=== PATIENT | female | born 1990 | race Caucasian/White ===

== ENCOUNTER 2024-02-04 15:40 | Outpatient (AMB) | payer OTHER, SELFPAY ==
[2024-02-04 15:43] VITALS: BP 100/66; PULSE 90; O2SAT 98; BMI 24.4
--- NOTE | 2024-02-04 15:43 | A.OFFVIS_ITS ---
Vital Signs 02/04/24 15:43 Height 5 ft 3 in Weight 137 lb 12.623 oz BMI 24.4 BP 100/66 Blood Pressure Location Lt brachial Position Sitting Pulse 90 Pulse Source Pulse Oximeter Pulse Oximetry (%) 98 Oxygen Delivery Method Room Air Intake Visit Reasons: Abnormal lab result/cm Intake Note: Patient presents as a new patient, externally referred by PCP for abnormal labs including +FADY. Allergies No Known Allergies Allergy (Verified 02/04/24 15:45) Medication List - Last Reconciled 02/04/24 by Charlette Ford MD No Known Home Meds HPI Comments Details: Patient is a 33-year-old female with no chronic medical illnesses who presents for evaluation of positive FADY. She has been having low back pain and fatigue for the past 1 year and she asked her PCP to evaluate. Several investigations were sent including FADY which was positive 1:5210 centromere pattern. ESR and CRP are normal. She denies Raynaud's, skin tightening, inflammatory type joint pain, alopecia, GERD, calcinosis, esophageal dysmotility. Denies rashes, photosensitivity, alopecia, sicca symptoms, lymphadenopathy, chest pain/shortness of breath, inflammatory type joint pain, foamy urine, lower extremity edema, muscle weakness, Raynaud's Also denies history of seizure, CVA, psychosis, history of kidney problems, history of cytopenias, history of VTE. Does note she gets nasal ulcers sometimes but she has been attributing them to her herpetic infections because she also has cold sores. Family history positive for Graves disease and Yanira's thyroiditis in her sisters. [facility] Medical History (Updated 02/04/24 @ 16:06 by Charlette Ford MD) FADY positive Review of Systems Const Details: Review of Systems Constitutional: Denies fever, chills, weight loss ENT: Denies vision changes, eye pain or eye redness, dental caries, dry mouth GI: Denies nausea, vomiting, diarrhea, abdominal pain, change in BM Pulm: Denies SOB, HART, hemoptysis, wheezing Cards: Denies chest pain, palpitations Skin: Denies Raynaud's, rash, nail changes, photosensitivity, ASSET ACCOUNTANT: Denies headaches, weakness, paresthesias, recurrent falls MSK: as per HPI All other systems reviewed and are unremarkable except noted above Physical Exam Vital Signs: Last Vital Signs Pulse 90 02/04/24 15:43 BP 100/66 02/04/24 15:43 Pulse Ox 98 02/04/24 15:43 Oxygen Delivery Method Room Air 02/04/24 15:43 BMI result Body Mass Index 24.4 Physical Examination Patient well appearing and in no apparent painful distress Able to rise from chair without support. ?Gait normal. Constitutional Mucous membranes pink and moist patient alert and cooperative HEENT Conjunctiva and sclera clear. ?Pupils equal round and reactive to light. ?No lymphadenopathy. ?Normal dentition. Respiratory System Normal respiratory effort and able to speak in complete sentences. ?Clear to auscultation bilaterally. ?No crackles, rales, rhonchi, wheezes heard. Cardiac System Regular rate and rhythm. ?S1 and S2 heard no murmurs. ?Radial pulses intact bilaterally MSK No deformity, swelling, abnormalities noted to bilateral hands. ?No evidence of synovitis. ?Able to move all joints with full range of motion, without limitation. Hands:.??Normal pain-free range of motion without tenderness, swelling, incr eased warmth or erythema. Able to make a full fist and has a good bulldozer/loader/compactor/scraper strength. Wrists: Normal pain-free range of motion without tenderness, swelling, increased warmth or erythema. Elbows: Full range of motion without pain. No tenderness, weakness, swelling, increased warmth or erythema. Shoulders: Full range of motion without pain. No tenderness, weakness, swelling, increased warmth or erythema. Hips: Full range of motion without pain. Hip bursa:.??No tenderness. Knees:.???Normal pain-free range of motion without tenderness, swelling, increased warmth or erythema.?No effusion or crepitations Ankles:.??Normal pain-free range of motion without tenderness, swelling, increased warmth or erythema. Feet:.??Normal pain-free range of motion without tenderness, swelling, increased warmth or erythema. Tender points:??No tenderness to digital palpation at the occiput, trapezius, second rib, lateral epicondyle, knees, greater trochanter bilaterally, and left gluteal. Skin No evidence of telangiectasias. No evidence of skin tightening. No evidence of alopecia. Normal nailfold capillaries. Results Reviewed Results Reviewed: Results reviewed in chart. FADY 1:5210 centromere pattern Negative APS antibodies Normal ESR/CRP Assessment & Plan Assessment & Plan (1) FADY positive: Code(s): R76.8 - Other specified abnormal immunological findings in serum Category: Medical Plan: #Positive FADY The presence of antinuclear antibodies (FADY) is mainly associated with connective tissue diseases (CTD). ?However, their presence is found in healthy people especially in women and patients >65. ?In healthy individuals, the frequency of FADY has been shown to be 31.7% of individuals at 1:40 serum dilution, 13.3% at 1:80, 5.0% at 1:160, and 3.3% at 1:320 (2). Some drugs and xenobiotics are also important for the development of FADY (hydralazine, hydrochlorothiazide, minocycline, terbinafine, ciprofloxacin, furosemide, omeprazole). Moreover, the deficiency of vitamin D in the body of patients correlates with occurrence of these antibodies (1). At this time there is low suspicion for a connective tissue disease. ? Although this is likely a normal variant given her really high titer would recommend yearly follow-up 1. Sabrina?sarbjit Beavers, Serg Moreno, Salazar Meza. Antinuclear antibodies in healthy people and non-rheumatic diseases - diagnostic and clinical implications. Reumatologia. 2018;56(4):243-248. doi: 10.5114/reum.2018.28084. Epub 2017Dec 05. PMID: 84480507; PMCID: [id number]. 2. Franz EM, Miguel TE, Jennifer JS, Terri B, Margarita R, Elsie MJ, Roland T, Yves JA, Roby JR, Nuha RG, Tito RN, Cameron JS, Xavier NF, Khushi RJ, Miguel Y, Silke A, Evin MR, Donald WU. Range of antinuclear antibodies in healthy individuals. Arthritis Rheum. 1996;40(9):1601-11. doi: 10.1002/art.4173197026. PMID: 7943017. Plan I spent 30 minutes reviewing the record and labs, seeing the patient, discussing the treatment plan and documenting in the medical record ? For next visit: * Labs Orders: Orders FADY Reflex Titer and Pattern Today R76.8 - Other specified abnormal immunological findings in serum Anti Extractable Nuclear Ag Today R76.8 - Other specified abnormal immunological findings in serum Scleroderma 70 Antibody Today R76.8 - Other specified abnormal immunological findings in serum Protein Creatinine Ratio, Ur Today R76.8 - Other specified abnormal immunological findings in serum UA w Microscopic Today R76.8 - Other specified abnormal immunological findings in serum Coding Level of Care Code New Pt Level 3 (80411) Diagnoses FADY positive R76.8
== END 2024-02-04 16:13 | disposition home or self-care (01) ==
LOC: HO.RHE 15:41
PROVIDERS: PCP Family Medicine; Visit Provider Student in an Organized Health Care Education/Training Program
DX: R76.8 Other specified abnormal immunological findings in serum (principal)
CPT/HCPCS: 99203

== ENCOUNTER 2024-02-04 15:40 | Outpatient (REF) | payer OTHER, SELFPAY ==
[2024-02-04 17:24] LABS: Appearance Urine Cloudy; Color Urine Yellow; Glucose Urine UA Negative (Negative); Leukocyte Esterase Urine Trace (Negative); Nitrite Urine Negative (Negative); PH 6.5 (5.0-9.0); Specific Gravity - Urine 1.015 (1.005-1.025); UMIC TRIGGER UA YES; Urine Blood Small (1+) (Negative); Urine Ketones Negative (Negative); Urine Protein Negative (Neg-Trace)
[2024-02-04 18:06] LABS: Bacteria Urine Trace (None Seen); Hyaline Casts Urine 0-2 /LPF (0-2); Squamous Epithelial Cell Urine >20 /HPF (0-2); WBC Urine 0-5 /HPF (0-5)
[2024-02-04 18:20] LABS: Creatinine Urine 106.69 mg/dL; Protein/Creatinine Ratio, Ur 0.07 (<0.2); Total Protein Urine Random 8 mg/dL (<12)
[2024-02-06 18:28] LABS: SM/Ribonucleoprotein Ab <1.0 NEG AI (<1.0 NEG); Scleroderma 70 Antibody <1.0 NEG AI (<1.0 NEG); Smith Protein <1.0 NEG AI (<1.0 NEG)
[2024-02-12 12:23] LABS: Anti Nuclear Antibody Pattern Nuclear, Homogeneous; Anti Nuclear Antibody Screen POSITIVE (NEGATIVE)
== END 2024-02-04 15:41 | disposition home or self-care (01) ==
LOC: HO.LAB 15:40
PROVIDERS: PCP Family Medicine; Visit Provider Student in an Organized Health Care Education/Training Program
DX: R76.8 Other specified abnormal immunological findings in serum (principal)
CPT/HCPCS: 36415; 81001; 82570; 84156; 86038; 86039; 86235

== ENCOUNTER → 2024-02-18 10:51 | Outpatient (REF) | payer OTHER, SELFPAY ==
--- NOTE | 2024-02-18 10:54 | CA_ITS ---
Transthoracic Echocardiogram Patient (Last, First, Middle): Mariaelena Neely, Gender: Female Date of : 1990 Age: 33 Procedure Date: 02/18/2024 Procedure Type: Transthoracic Echocardiogram Location: OP Height: 160.02 cm Weight: 60.33 kg BSA: 1.63 m2 Heart Rate: bpm BP: 106 / 64 mmHg Truck Driver: STEPHANIE Referring MD: Charlette Ford MD Cupola Hoist Operator: Warner Rosenberg MD Symptoms: M34.9 - Systemic sclerosis, unspecified Study Quality: Adequate ECG Rhythm: Sinus Conclusions: - Normal study Findings Left Ventricle Normal left ventricular size, thickness, and systolic function. The visually estimated ejection fraction is between 60-65%. Diastolic function is normal for age. Right Ventricle Normal right ventricular cavity size and systolic function. Atria Both atria are normal in size. There is no evidence of interatrial shunt. Aortic Valve Normal aortic valve structure and function. There is no aortic valve stenosis. There is no aortic valve regurgitation. Mitral Valve Normal mitral valve structure and function. There is trace mitral valve regurgitation. There is no mitral valve stenosis. Tricuspid Valve Normal tricuspid valve structure. There is trace tricuspid valve regurgitation. The right ventricular systolic pressure is normal. The right ventricular systolic pressure is 27 mmHg. Normal right atrial pressure. There is no evidence of pulmonary hypertension. Great Vessels All visible segments of the aorta are normal in size. The visualized portions of the pulmonary artery and branches are normal. Venous The inferior vena cava is normal in size and collapses greater than 50% with inspiration. Pericardium/Pleural There is no evidence of pericardial effusion. Prior Study Comparison No prior study available for comparison. Measurements 2D Linear Measurements IVSd: 0.67 0.6-0.9/0.6-1.0 cm LVIDd: 4.70 3.9-5.3/4.2-5.9 cm LVIDd Index: 2.88 2.4-3.2/2.2-3.1 cm/m2 LVIDs: 3.33 2.0-3.6 cm LVPWd: 0.51 0.7-1.1 cm LA Diam: 2.80 2.7-3.8/3.0-4.0 cm LAIDs Index: 1.72 1.5-2.3 cm/m2 LV Mass: 103.78 67-162/88-224 g LV Mass Index: 63.67 43-95/49-115 g/m2 LVOT Diam: 1.80 3.0+(-)1.3 cm 2D Systolic Function EF 4C: 62.60 >55% EF 2C: 60.30 >55% EF BiP: 59.90 >55% Mitral Valve MV Pk E: 0.78 MV PK A: 0.42 MV Decel Time: 283.00 E/A: 1.90 E'Lateral: 15.70 E'Medial: 11.50 E/E' Med: 6.80 E/E' Lat: 5.00 PHT: 83.00 MVA PHT: 2.65 Decel [place]: 2.77 Aortic Valve AoV Pk Myke: 1.35 AoV Mn Myke: 0.98 AoV VTI: 0.40 AoV Pk Grad: 7.00 Aov Mn Grad: 4.00 MAXIMUS Cont.VTI: 1.49 LVOT LVOT Pk Myke: 1.05 LVOT Mn Myke: 0.75 LVOT VTI: 0.24 LVOT Pk Grad: 4.00 LVOT Mn Grad: 3.00 LVOT Diam: 1.80 LVOT Area: 2.54 Diastolic Function MV Pk E: 0.78 MV Pk A: 0.42 E/A: 1.90 E'Medial: 11.50 E/E' Med: 6.80 E' Laterial: 15.70 E/E' Lat: 5.00 Right Ventricle TAPSE (mm): 25.00 TVS' Myke: 13.80 Tricuspid Valve TR Pk Myke: 2.47 TR Pk Grad: 24.00 RA Press: 3.00 RVSP: 27.00 Great Vessels Aorta Sinus of Valsalva: 2.62 2.0-3.[address] [place]: 2.29 1.7-3.4 cm Ao Asc: 2.60 2.1-3.4 cm Ao Arch: 2.20 Updated in Other Vendor System with Status of Final Warner Rosenberg MD electronically signed on 02/18/2024 4:21:37 PM with status of Final
== END ==
LOC: HO.CARD 10:51
PROVIDERS: PCP Family Medicine; Visit Provider Student in an Organized Health Care Education/Training Program
DX: M34.9 Systemic sclerosis, unspecified (principal)
CPT/HCPCS: 93306

== ENCOUNTER → 2024-02-18 10:54 | Outpatient (BNV) | payer OTHER, SELFPAY | PROVIDERS: PCP Family Medicine; Visit Provider Internal Medicine Cardiovascular Disease | DX: M34.9 Systemic sclerosis, unspecified (principal) | CPT/HCPCS: 93306 ==

== ENCOUNTER 2024-02-27 15:49 | Outpatient (REF) | payer OTHER, SELFPAY ==
--- NOTE | ~2024-02-27 | CT_ITS ---
EXAMINATION: CT CHEST WITHOUT CONTRAST CLINICAL INFORMATION: Systemic sclerosis. COMPARISON: None available. TECHNIQUE: Multidetector volumetric CT imaging of the chest was done. Axial MIP volume rendering provided. Sagittal and coronal reformatted images were obtained. This CT examination was performed using dose optimization techniques as appropriate, variously including the following: *Automated exposure control *Adjustment of mA and/or kV according to patient size (this includes techniques or standardized protocols for targeted exams where dose is matched to indication/reason for exam; i.e. extremities or head) *Use of iterative reconstruction technique DLP: 133 mGy-cm FINDINGS: LUNGS: The lungs are clear with no evidence of inflammation or nodules. MEDIASTINUM: Imaged thyroid gland is unremarkable. No axillary, hilar or mediastinal lymphadenopathy. Great vessels are of normal caliber. Heart size is normal. No pericardial effusion. CORONARY ARTERY CALCIFICATION: None visualized on this study. PLEURA: No pleural effusion. UPPER ABDOMEN: Unremarkable. OSSEOUS STRUCTURES: No destructive bone lesions. CT/CT chest wo IV con IMPRESSION: Unremarkable examination. Fleischner guidelines were followed. Electronically signed by: Pro Meyer MD 03/01/2024 11:32 AM [facility] [place]
== END 2024-02-27 15:50 | disposition home or self-care (01) ==
LOC: HO.CT 15:49
PROVIDERS: PCP Family Medicine; Visit Provider Student in an Organized Health Care Education/Training Program
DX: M34.9 Systemic sclerosis, unspecified (principal)
CPT/HCPCS: 71250

== ENCOUNTER 2025-02-02 08:04 | Outpatient (REF) | payer OTHER, SELFPAY ==
--- OUTSIDE RECORDS SUMMARY | 2025-02-02 09:16 | XMS_ITS | Clinical Summary ---
Author Organization [facility] Address [address] [place] [address] Care Team Providers Care Other Sports Official Name Role Phone Abigail Benitez MD Primary Care Provider [phone] Immunizations Name Administration Dates Next Due Influenza Quadrivalent Prese rvative Free (IM) 01/25/2020 Influenza Unspecified 02/07/2021(Deferre d: Vaccinated Elsewhere - [facility]),01/14/2019(Deferred: Vaccinated Elsewhere - [facility]) PFIZER COVID-19 Vaccine (Pur ple), mRNA, LNP-S, PF, 30 mcg/0.3 mL dose 04/20/2020,03/29/2020 Social History Tobacco Use Types Packs/Day Years Used Date Smoking Tobacco: Never Assessed Comments Unknown Sex and Gender Information Value Date Recorded Sex Assigned at Not on file Legal Sex Female 9:37 AM EDT Gender Identity Not on file Sexual Orientation Not on file Plan of Treatment Not on file Insurance [facility] Care Teams Other Sports Official Relationship Specialty Start Date End Date Abigail Benitez MD [address] [place] [id number] PCP - General Internal Medicine 01/08/20
[2025-02-02 13:16] LABS: Appearance Urine Clear; Glucose Urine UA Negative (Negative); PH 7.0 (5.0-9.0); Specific Gravity - Urine 1.020 (1.005-1.025)
[2025-02-02 14:11] LABS: Total Protein Urine Random < 7 mg/dL (<12)
== END 2025-02-02 08:05 | disposition home or self-care (01) ==
LOC: HO.HKASLDS 08:04
PROVIDERS: PCP Family Medicine; Visit Provider Student in an Organized Health Care Education/Training Program
DX: M32.9 Systemic lupus erythematosus, unspecified (principal); R76.89 Other specified abnormal immunological findings in serum
CPT/HCPCS: 36415; 81001; 82570; 84156; 85652; 86140; 86160; 86225

== ENCOUNTER 2025-02-02 08:04 | Outpatient (AMB) | payer OTHER, SELFPAY ==
--- NOTE | 2025-02-02 08:08 | MHC.OFFVIS ---
Vital Signs 02/02/25 08:15 Height 5 ft 3 in Weight 137 lb 5.568 oz BMI 24.3 BP 102/70 Blood Pressure Location Lt brachial Position Sitting Pulse 87 Pulse Source Pulse Oximeter Pulse Oximetry (%) 100 Oxygen Delivery Method Room Air Intake Visit Reasons: Elevated FADY Intake Note: Patient presents for elevated FADY follow up. Allergies No Known Allergies Allergy (Verified 02/02/25 08:12) Medication List - Last Reconciled 02/02/25 by Charlette Ford MD No Known Home Meds HPI Comments Details: Patient is a 34-year-old female with no chronic medical illnesses here today for follow up Interval History: Patient last seen 02/04/24 - New patient eval for positive FADY - No evidence of CTD at that time - Plan for yearly follow up given high titre Today - Not on any DMARDs - Doing well this past year - Denies photosensitivity, alopecia, oral/nasal ulcers, sicca symptoms, lymphadenopathy, chest pain/shortness of breath, inflammatory type joint pain, foamy urine, lower extremity edema, muscle weakness, Raynaud's - Also denies history of seizure, CVA, psychosis, history of kidney problems, history of cytopenias, history of VTE including PE or DVTs Rheumatologic History: Initial History: She has been having low back pain and fatigue for the past 1 year and she asked her PCP to evaluate. Several investigations were sent including FADY which was positive 1:5210 centromere pattern. ESR and CRP are normal. She denies Raynaud's, skin tightening, inflammatory type joint pain, alopecia, GERD, calcinosis, esophageal dysmotility. Denies rashes, photosensitivity, alopecia, sicca symptoms, lymphadenopathy, chest pain/shortness of breath, inflammatory type joint pain, foamy urine, lower extremity edema, muscle weakness, Raynaud's Also denies history of seizure, CVA, psychosis, history of kidney problems, history of cytopenias, history of VTE. Does note she gets nasal ulcers sometimes but she has been attributing them to her herpetic infections because she also has cold sores. Family history positive for Graves disease and Yanira's thyroiditis in her sisters. Current Rheumatology Medication(s): [facility] Medical History (Updated 02/04/24 @ 16:06 by Charlette Ford MD) FADY positive Family History (Updated 02/02/25 @ 08:14 by ALEA Gallagher) Sister Yanira's disease Sister Graves disease Social History (Updated 02/02/25 @ 08:15 by ALEA Gallagher) Household Members: Family Housing: House Alcohol intake: current Patient Tobacco Use Status: Never used Tobacco Review of Systems Narrative Review of Systems Constitutional: Denies fever, chills, weight loss ENT: Denies vision changes, eye pain or eye redness, dental caries, dry mouth GI: Denies nausea, vomiting, diarrhea, abdominal pain, change in BM Pulm: Denies SOB, HART, hemoptysis, wheezing Cards: Denies chest pain, palpitations Skin: Denies Raynaud's, rash, nail changes, photosensitivity, WOMEN'S ACTIVITIES ADVISER: Denies headaches, weakness, paresthesias, recurrent falls MSK: as per HPI All other systems reviewed and are unremarkable except noted above Physical Exam Exam Exam: Vital signs reviewed Physical Examination CONSTITUITIONAL Patient alert and cooperative. Well appearing and in no apparent painful distress MSK Hands Right Hand: Able to make a fist. No swelling or tenderness to palpation of the MCPs, PIPs or DIPs. No deformities noted. Left Hand: Able to make a fist. No swelling or tenderness to palpation of the MCPs, PIPs or DIPs. No deformities noted. Wrists Right Wrist: Full ROM to flexion and extension. No swelling or TTP Left Wrist: Full ROM to flexion and extension. No swelling or TTP Elbows Right Elbow: Full ROM. No swelling or TTP. No TTP of the medial epicondyle. No TTP of the lateral epicondyle Left Elbow: Full ROM. No swelling or TTP. No TTP of the medial epicondyle. No TTP of the lateral epicondyle Shoulders Right shoulder: Full ROM. No swelling noted. No TTP of the AC joint. No TTP of the subacromial bursa. No TTP of the posterior shoulder Left shoulder: Full ROM. No swelling noted. No TTP of the AC joint. No TTP of the subacromial bursa. No TTP of the posterior shoulder Knees Right knee: Full ROM. No swelling noted. No TTP of the knee joint line. No TTP of pes anserine bursa Left knee: Full ROM. No swelling noted. No TTP of the knee joint line. No TTP of pes anserine bursa. Ankles Right ankle: Good ankle dorsiflexion and plantar flexion. No swelling. No TTP of the ankle joint Left ankle: Good ankle dorsiflexion and plantar flexion. No swelling. No TTP of the ankle joint Feet Right foot: Negative squeeze test Left foot: Negative squeeze test Tender points? No tenderness to palpation of the bilateral trapezius, supraspinatus, anterior costochondral junctions, bilateral suboccipital muscle insertions SKIN No rashes Vital Signs: Last Vital Signs Pulse 87 02/02/25 08:15 BP 102/70 02/02/25 08:15 Pulse Ox 100 02/02/25 08:15 Oxygen Delivery Method Room Air 02/02/25 08:15 BMI result Body Mass Index 24.3 Results Reviewed Results Reviewed: Laboratory Tests 02/04/24 16:32 FADY Screen POSITIVE A FADY Titer 1:640 H FADY Pattern Nuclear, Homogeneous A Sm ([place]) Antibody <1.0 NEG SM/CLIENT RELATIONSHIP CONSULTANT IgG Antibody <1.0 NEG Scl-70 Scleroderma Ab <1.0 NEG Assessment & Plan Assessment & Plan (1) FADY positive: Code(s): R76.8 - Other specified abnormal immunological findings in serum Category: Medical Plan: #Positive FADY Patient is a 34-year-old female with no chronic medical illness and a positive FADY here today for yearly follow up. Again with no signs or symptoms concerning for connective tissue disease. We will continue to follow her yearly for a total of 5 years and then she can follow up p.r.n. after that Plan - Labs today: CBC, CMP, CRP, ESR, C3, C4, dsDNA, UA, UPC - RTC 1 year 1. Sabrina?sarbjit Beavers, Serg Moreno, Salazar Meza. Antinuclear antibodies in healthy people and non-rheumatic diseases - diagnostic and clinical implications. Reumatologia. 2018;56(4):243-248. doi: 10.5114/reum.2018.91655. Epub 2017Dec 05. PMID: [id number]; PMCID: [id number]. 2. Franz EM, Miguel TE, Jennifer JS, Terri B, Margarita R, Elsie MJ, Roland T, Yves JA, Roby JR, Nuha RG, Tito RN, Cameron JS, Xavier NF, Khushi RJ, [place] Y, Silke A, Evin MR, Donald JA. Range of antinuclear antibodies in healthy individuals. Arthritis Rheum. 1997 Dec;40(9):1601-11. doi: 10.1002/art.[id number]. PMID: 4582086. Plan I spent 20 minutes reviewing the record and labs, seeing the patient, discussing the treatment plan and documenting in the medical record Orders: Orders C Reactive Protein Today M32.9 - Systemic lupus erythematosus, unspecified Complement C3 Today M32.9 - Systemic lupus erythematosus, unspecified Complement C4 Today M32.9 - Systemic lupus erythematosus, unspecified UA ClnCatch+Micro w/rflx Cult Today M32.9 - Systemic lupus erythematosus, unspecified Protein Creatinine Ratio, Ur Today M32.9 - Systemic lupus erythematosus, unspecified Erythrocyte Sedimentation Rate Today M32.9 - Systemic lupus erythematosus, unspecified Anti DNA DS Antibody Today M32.9 - Systemic lupus erythematosus, unspecified Coding Level of Care Code Est Pt Level 3 (28152) Diagnoses FADY positive R76.8
--- OUTSIDE RECORDS SUMMARY | 2025-02-02 08:14 | XMS_ITS | Clinical Summary ---
Author Organization [facility] [employer] Address [address] [place] [address] Care Team Providers Care Teenage Babysitter Name Role Phone No, Pcp COMIC WRITER Primary Care Provider Unavailabl e Allergies No known active allergies Medications No known medications Immunizations Immunization Administration Dates Next Due Flucelvax Trivalent PFS IM; Without Preservative (18+ mos) 04/24/2018 PPD Test 10/12/2014,10/05/2014 Social History Tobacco Use Types Packs/Day Years Used Date Smoking Tobacco: Never Comments No Sex and Gender Information Value Date Recorded Sex Assigned at Not on file Legal Sex Female 3:03 AM EDT Gender Identity Not on file Sexual Orientation Not on file Last Filed Vital Signs Vital Sign Reading Time Taken Comments Blood Pressure - - Pulse - - Temperature 36.7 C (98.1 F) 10/12/2014 2:39 PM EDT Respiratory Rate - - Oxygen Saturation - - Inhaled Oxygen Concentration - - Weight - - Height - - Body Mass Index - - Plan of Treatment Health Maintenance Due Date Last Done Comments Depression: Screening Annually using PHQ-2/9 in Adults 18 yrs or above (or HM Modifier)([facility]) 2006 Hepatitis C Virus Infection in Adolescents and Adults: Screening (or Modifier) ([facility]) 2006 SDMS Screening Reminder: Annually for all adults ([facility]) 2006 Tobacco Smoking Cessation: i n Adults excluding Women: Behavioral and Pharmacotherapy Interventions ([facility]) 2006 Cervical Cancer Screenin-65 yrs of age (or Modifier) 2009 Cervical Cancer Screening: Pap every 3 yrs pts age 21-65 2009 Cervical Cancer: Pap Screening with Modifier timing ([facility]) 2009 Cervical Cancer: hrHPV alone or with cotesting Pap for Pts 30-65yrs screening every 5yrs ([facility]) 2009 DTaP/Tdap/Td Vaccines ([facility]) (5 - Td or Tdap) 04/11/2024 04/11/2014, 06/27/2003, 05/30/2000, Additional history exists Flu Vaccination: Yearly for ages 18mos through 64 years (or Modifier)([facility]) 11/05/2024 04/24/2018, 02/28/2014 COVID-19 Vaccine Screening: Initial Series and Booster Status ([facility]) ( season) 2024 Zoster/Shingles Vaccine Series Screening: Adults aged 18+ yrs (or HM Modifiers)([facility] ) (1 of 2) 2038 05/26/2014, 03/08/2006 Pneumococcal Vaccination Screening: Pts 0-19 & 19-49 yrs of age ([facility] ) Aged Out No longer eligible based on patient's age to complete this topic Medical Devices Not on file [place] [address] [place] [address] Care Teams Teenage Babysitter Relationship Specialty Start Date End Date No, Pcp, COMIC WRITER N/A Do not use PCP - General 10/05/14
[2025-02-02 08:15] VITALS: BP 102/70; PULSE 87; O2SAT 100; BMI 24.3
--- OUTSIDE RECORDS SUMMARY | 2025-02-02 08:15 | XMS_ITS | Clinical Summary ---
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 See 08/02/12 Family Doctor's Visit note. Immunizations Immunization Administration Dates Next Due BCG 1988 DTaP, unspecified formulation 03/28/1990 Hepatitis B Adult 09/03/1998,07/04/1998,04/14/18 99 Influenza Quadrivalent Prese rvative Free IM 02/28/2014 Influenza, Unspecified Formulation 12/22/2012 MMR 12/07/2005,11/22/1995 Measles 06/10/1989 Polio, Unspecified Formulation 0,01/15/1989,1988,1988 Td, unspecified formulation 06/27/2003, 1 Tdap 04/11/2014 Varicella 05/26/2014,05/26/2014,03/08/2006 Family History Medical History Relation Comments Breast cancer Cousin breast cancer Relation Status Comments Cousin Social History Tobacco Use Types Packs/Day Years Used Date Smoking Tobacco: Never Education Answer Date Recorded Are you interested in more education? Not on karen e 08/01/2022 Are you concerned about learning? Not on file 08/01/2022 No 08/01/2022 No 08/01/2022 Digital Access Answer Date Recorded No 09/02/2022 No 09/02/2022 No 09/02/2022 Reliable internet access at home? Not on file 09/02/2022 Device with a working camera? Not on file Comments Unknown Sex and Gender Information Value Date Recorded Sex Assigned at Not on file Legal Sex Female 7:12 PM EST Gender Identity Not on file Sexual Orientation Not on file Last Filed Vital Signs Vital Sign Reading Time Taken Comments Blood Pressure 120/80 10/14/2014 1:10 PM EDT Pulse 72 10/14/2014 1:10 PM EDT Temperature 36.4 C (97.6 F) 10/14/2014 1:10 PM EDT Respiratory Rate - - Oxygen Saturation - - Inhaled Oxygen Concentration - - Weight 60.5 kg (133 lb 6.4 oz) 10/14/2014 1:10 P M EDT Height 160 cm (5' 3 ) 02/28/2014 12:00 AM EST Body Mass Index 23.63 02/28/2014 12:00 AM EST Plan of Treatment Health Maintenance Due Date Last Done Comments DEPRESSION SCREENING 2000 HEPATITIS C SCREENING 2006 SMOKING STATUS SCREENING (On ce After 26 Yrs) 2014 PAP SMEAR 11/25/2016 11/25/2013 IUD 07/18/2022 07/18/2014 Adult Td,Tdap Booster 04/11/2024 04/11/2014 , 06/27/2003, 05/30/2000 INFLUENZA VACCINE (#1) 2024 9, 02/28/2014, 12/22/2012 COVID-19 VACCINE (2024-2 6 season) 2024 HIV ONE-TIME SCREENING (18-6 5 YEARS) Completed 03/21/2014 HEPATITIS A VACCINES Aged Out No long er eligible based on patient's age to complete this topic HIB VACCINES Aged Out No longer eligi ble based on patient's age to complete this topic MENINGOCOCCAL VACCINES (ACWY) Aged Out No longer eligible based on patient's age to complete this topic MENINGOCOCCAL VACCINES (B) Aged Out N o longer eligible based on patient's age to complete this topic PNEUMOCOCCAL VACCINES (0-49 years) Aged Out No longer eligible b ased on patient's age to complete this topic Medical Devices Not on file Procedures Procedure Name Priority Date/Time Associated Diagnosis Comments PAP TEST Routine 11/25/2013 8:41 PM EDT from Last 3 Months or Most Recently Relevant to Health Maintenance Results * Pap Smear (11/25/2013 8:41 PM EDT) 11/25/2013 8:41 PM EDT [facility] - 11/25/2013 8:41 PM EDT Accession Number: [id number] Report Status: Final Type: Cytology Procedure Date: 11/25/13 Ordering Provider: GENESIS SANCHEZ CNM Patient Name:MARIAELENA QUILES Specimen #: [id number] Source of Specimen(s) 1: ENDOCERVICAL / ECTOCERVICAL 2: PAP DIAGNOSIS: NEGATIVE FOR INTRAEPITHELIAL LESION AND MALIGNANCY. Source.............Endocervical Dates / Results....NOB No. of containers..01 [employer] Collection Vial SPECIMEN ADEQUACY: Satisfactory for evaluation. Endocervical and/or squamous metaplasticcells (endocervical component) are present. PERFORMED BY: Chanel Calderon Satellite Dish Installer (ASCP) .: . COMMENT: The Pap smear is a screening test designed to aid in the detection of premalignant and malignant conditions of the uterine cervix. It is not a diagnostic procedure and should not be used as the sole means of detecting cervical cancer. Both false-positive and false-negative reports do occur. Screened At [facility], [place] [address]/[place] [address]/[place] [address] Electronically Signed Out ByMACK /11/29/2013 Billing Fee Code(s): {Not Entered} us Genesis Sanchez CNM CYTOLOGY ORDERABLES Fin al Result [place] [id number], [facility] from Last 3 Months or Most Recently Relevant to Health Maintenance Insurance S S PHCS S S S Care Teams Fire Management Officer Relationship Specialty Start Date End Date Domenic Man MD [address] [place] [address] [id number] [place] [id number] PCP - General 10/05/13 Additional Source Comments The information contained in this document represents components of the legal health record. It is not the complete legal health record.[facility]
--- OUTSIDE RECORDS SUMMARY | 2025-02-02 08:15 | XMS_ITS | Patient Health Record ---
Author Organization [facility] Address [address] [place] [address] Care Team Providers Care Livestock Exhibitor Name Role Phone UNKNOWN, PROVIDER Unavailable [phone] Unknown MD, Provider Unavailable Unavailable Allergies No Known Allergies Reason For Referral No Information Medications Medication SIG (Take, Route, Frequency, Duration) Notes Start Date End Date Status Mirena 11/14/2017 Active Escitalopram Oxalate 20 MG Tablet 1 tablet Orally Once a day; Duration: 90 days Active Cyclobenzaprine HCl 5 MG Tablet 1 tablet as needed Orally twice a day; Duration: 10 days 06/18/2019 Not-Taking Immunizations Vaccine Route Administration Date Status Comme nts COVID-19 (Pfizer) 1st Dose Unknown 03/29/2020 Administe red COVID-19 (Pfizer) 2nd Dose Unknown 04/20/2020 Administe red Flu (ST) Adult (Flucelvax), quad-multidose vial IM Intramuscular 02/07/2021 Administered TdaP (PRIVATE) Adult Unknown 04/11/2014 Administered Social History Tobacco Use: Social History Observation Description Date Details (start date - stop date) Never Smoker NA - NA Social History Tobacco Use: Social Info Question Answer Notes Tobacco Use: Date tobacco status assessed 12/21/2019 Status: Never tobacco user Additional Details Category Social Info Options Details Miscellaneous: 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 No drugs Lives with: and 2 ki ds Problems Problem Type SNOMED Code ICD Code Onset Dates Problem Status W/U Status Risk Notes Problem General examination of patient (005762136) Routine medical exam (Z00.00) Active confirmed PAP: 2018. Vaccines: flu vaccine: she will get at work. Tetanus up to date. Problem Generalized anxiety disorder (56697066) Generalized anxiety disorder (F41.1) Active confirmed Problem Family history: Thyroid disorder (698751921) Family history of thyroid disease (Z83.49) Active confirmed Problem Chronic fatigue syndrome (45233621) Chronic fatigue (R53.82) Active confirmed Problem Lesion of liver (979193264) Liver lesion (K76.9) Active confirmed Problem Pancreatic divisum (57776174) Pancreatic divisum (Q45.3) Active confirmed Plan Of Treatment Pending Test Test Name Order Date ANTITHYROID PEROXIDASE AB 06/18/2019 HEPATITIS C ANTIBODY 12/26/2020 LIPID PANEL (CHOL,TRIG,HDL,LDL, CHOL/HDL RATIO) 12/26/2020 LIPID PANEL (CHOL,TRIG,HDL,LDL, CHOL/HDL RATIO) 02/07/2021 3rd GN TSH Reflex 02/07/2021 HIV Ab/Ag Combo 12/26/2020 Stool Brittany-Ruperto Extended GI PCR Panel 0 08/03/2020 Ova and Parasite Exam, Fecal 08/03/2020 Insurance Providers Payer Name Payer Address Payer Phone Subscriber Number Group Number Insured Name Patient Relationship to Insured Coverage Start Date Coverage End Date [place] [id number] Mariaelena Neely Self - patient is the insured Medical (General) History Medical History History ICD Code Anal fissures - constipation sometimes. - PAP: 2018 normal PAP with HPV Surgical History Surgery Date(Month/Year) C section x2
== END 2025-02-02 08:39 | disposition home or self-care (01) ==
LOC: HO.RHES 08:05
PROVIDERS: PCP Family Medicine; Visit Provider Student in an Organized Health Care Education/Training Program
DX: R76.89 Other specified abnormal immunological findings in serum (principal)
CPT/HCPCS: 99213